=== PATIENT | male | born 1975 | race Caucasian/White ===

== ENCOUNTER → 2017-05-07 | Outpatient (CLI) | payer BC ==
[~2017-05-07] MED LIST: CIPRO; FLOMAX0.4 M1 PO; LORTAB 7.5-5001 TAB PO; NORCO1 TAB 10/3; ZOFRAN ODT4 MG/UDTAB PO
--- NOTE | ~2017-05-07 | US116 ---
[facility] A Service of [facility] RADIOLOGY TEXT RESULTS PATIENT: CHAVA MELARA LOCATION: [facility] : 73 UNIT #: [id number] AGE: [address]: SEAN LOGAN APRN SEX: M ORDER DR: [id number] [address] [address] [id number] O MR#: [id number] Acc #: [id number] NAME: CHAVA MELARA : 1975 SEX: M STUDY DATE/TIME: 05/07/2017 13:27 UNIT: US ROOM: STUDY DESCRIPTION: US Soft Tissue Head/Neck Attending Physician: Sean Logan Aprn Referring Physician: Sean Logan Aprn Ordering Physician: Sean Logan Aprn Primary Care Physician: Sean Logan Aprn MEDICAL IMAGING REPORT This report is preliminary unless electronic signature is present EXAM Abdominal soft tissue ultrasound INDICATION Palpable mass in the right lateral abdomen for the past 6 months. PROCEDURE Patel-scale and Doppler imaging of the lateral right abdomen in the area of concern. COMPARISON None. FINDINGS There is a slightly hyperechoic mass in the subcutaneous fat in the lateral right mid abdomen that measures approximately 3.1 x 1.0 x 1.8 cm. No significant internal flow. IMPRESSION Probable lipoma in the subcutaneous fat of the lateral right midabdomen measuring up to 3.1 cm. Dictated by... Cirilo Hicks M.D. THIS IS AN ELECTRONICALLY VERIFIED REPORT Cirilo Hicks M.D. at 05/09/2017 10:44 AM ANTON/ashwin TD: 05/08/2017 07:57 JOB #: [id number] [facility] A Service [facility] RADIOLOGY TEXT RESULTS PATIENT: CHAVA MELARA LOCATION: [facility] : 73 UNIT #: [id number] AGE: [address]: SEAN LOGAN APRN SEX: M ORDER DR: MEDICAL IMAGING REPORT Page 1 of 1 COPY
== END | disposition home or self-care (01) ==
LOC: CGUS 12:40
DX: R22.9 Localized swelling, mass and lump, unspecified (principal)
CPT/HCPCS: 76536